=== PATIENT | female | born 1985 | race Caucasian/White ===

== ENCOUNTER 2016-03-01 09:32 | Day surgery (SDC) | payer OTHER ==
[~2016-03-01] VITALS: Ht 160 cm; Wt 61.4 kg
[~2016-03-01 09:32] MED LIST: BUPIVACAINE/EPINEPHRINE 0.5%-1:200,000 (MARCAINE) 30 ML VIAL INJ ONE; CEPH-506 PO; CTLP20T PO; ETHI1TAB26 PO; LACTATED RINGERS 1,000 ML IV SCH; OXYC1TAB87 PO; SODIUM CHLORIDE FLUSH 3 ML SYR IV PRN
--- OUTSIDE RECORDS SUMMARY | 2016-03-01 09:35 | XMS REPORT | Continuity of Care Document ---
Author Author [facility] Organization [facility] Address Unknown Phone Unavailable Support Name Relationship Address Phone DOMENICA RIVAS Next Of Kin [address] [place] [address] Unavailable Insurance Providers Payer Name Policy Number Subscriber Name Relationship [facility] [id number] Cecilia Rivas 20 Self Problems No Known Problems or Medical conditions. Family History History Response Recorded Date/Time Hx Diabetes N 09/30/12 7:27pm Hx MRSA N 09/30/12 7:27pm Social History History Response Recorded Date/Time Smoking Status Never smoker 09/30/12 7:27pm Hx Substance Use N 09/30/12 7:27pm Allergies, Adverse Reactions, Alerts Allergen Type Severity Reaction Last Updated Penicillins Allergy Mild 09/03/12 codeine Allergy Intermediate DYSPNEA 09/03/12 Medications Medication Dose Units Route Sig Qty Days Vits W-Ca,Fe,Fa(<1MG) ( Vitamins) 1 Tab PO DAILY Immunizations Name Given Type Hx Influenza Vaccination Y January 2012 H Response Recorded Date/Time Status not known Unknown Results Test Date Result Interp. Ref. Range Hematocrit October 02, 2012 4:40am 28.6 % DL 36-46 Hemoglobin October 02, 2012 4:40am 9.3 GM/DL DL 12-16 Mean Corpuscular Hemoglobin October 02, 2012 4:40am 29.2 UUG N 26-34 Mean Corpuscular Hemoglobin Concent October 02, 2012 4:40am 32.5 GM/DL N 31 -37 Mean Corpuscular Volume October 02, 2012 4:40am 89.9 UM3 N 80-100 Mean Platelet Volume October 02, 2012 4:40am 9.4 UM3 N 9.4-12.4 Platelet Count October 02, 2012 4:40am 275 T/MM3 N 130-400 RDW Standard Deviation October 02, 2012 4:40am 41.1 FL N 36.9-50.2 Red Blood Count October 02, 2012 4:40am 3.18 M/MM3 L 4.00-5.20 White Blood Count October 02, 2012 4:40am 14.7 T/MM3 H 4.5-11.0 Procedures Procedure Code Date LOW CERVICAL 74.1 10/01/12 MEDICAL INDUCTION LABOR 73.4 10/01/12 Encounters Encounter Location Date/Time Discharged Inpatient [facility] 09/30/12 6:03pm
[2016-03-01 09:39] VITALS: BP 102/68
[2016-03-01] MEDS ORDERED: MIDAZOLAM 2 MG/2 ML (VERSED) VIAL ONE (10:18)
[2016-03-01] MEDS ORDERED: ALFENTANIL 500 MCG/ML (ALFENTA) 5 ML AMP IV ONE (10:19)
[2016-03-01] MEDS ORDERED: PROPOFOL 0 ML IV ONE (10:20)
[2016-03-01] MEDS ORDERED: PROPOFOL 20 ML IV ONE (10:20)
[2016-03-01] MEDS ORDERED: ROCURONIUM 50 MG/5 ML (ZEMURON) VIAL IV ONE (11:09)
[2016-03-01] MEDS ORDERED: METOCLOPRAMIDE 10 MG/2 ML (REGLAN) VIAL ONE (11:19)
[2016-03-01] MEDS ORDERED: diphenhydrAMINE 50 MG/ML INJ (BENADRYL) ONE (11:19)
[2016-03-01] MEDS ORDERED: ONDANSETRON 2 MG/ML (Z0FRAN) 2 ML VIAL ONE (11:19)
[2016-03-01] MEDS ORDERED: GLYCOPYRROLATE 0.2 MG/ML (ROBINUL) 1 ML VIAL ONE ×2 (11:57→11:58)
[2016-03-01] MEDS ORDERED: NEOSTIGMINE 1 MG/ML SYRINGE ONE (11:58)
[2016-03-01] MEDS ORDERED: KETOROLAC 60 MG/2 ML (TORADOL) VIAL IM ONE (12:15)
[2016-03-01 13:04] VITALS: BP 120/61
[2016-03-01 13:19] VITALS: BP 107/66
[2016-03-01] MEDS ORDERED: ONDANSETRON 2 MG/ML (Z0FRAN) 2 ML VIAL IV PRN (13:25)
[2016-03-01] MEDS ORDERED: morphine INJ 4 MG/ML 1 ML SYRINGE IV PRN (13:25)
[2016-03-01] MEDS ORDERED: METOCLOPRAMIDE 10 MG/2 ML (REGLAN) VIAL IV PRN (13:25)
[2016-03-01] MEDS ORDERED: KETOROLAC 30 MG/ML (TORADOL) 1 ML VIAL IV PRN (13:25)
[2016-03-01 13:41] VITALS: BP 100/54
--- NOTE | 2016-03-01 13:45 | OPERATIVE REPORT ---
DATE OF OPERATION: 03/01/2016 PRE-OPERATIVE DIAGNOSIS: Symptomatic cholelithiasis POST-OPERATIVE DIAGNOSIS: Symptomatic cholelithiasis OPERATIVE PROCEDURE: Laparoscopic cholecystectomy with intraoperative cholangiogram. SURGEON: Emory Patricio MD YARD STOCKER: Delfina Knapp RN FA and Mindy Rodriguez MS3 ANESTHESIA: General endotracheal anesthetic INDICATIONS: The patient is a 30-year-old referred by Dr. Peace this summer with abdominal pain in the right upper quadrant associated with gallstones seen on ultrasound. She presents today for elective cholecystectomy after experiencing several more episodes of this pain in recent weeks. DESCRIPTION OF PROCEDURE: The patient was informed of the risks and benefits and agreed to proceed. She was taken to the operating room and placed supine on a standard operating table. She was administered general endotracheal anesthetic. When properly anesthetized her abdomen was prepped and draped in standard sterile fashion. The open technique was used to access the peritoneal cavity through a curvilinear incision just above the umbilicus and #0 Vicryl stay sutures were placed in the fascia. A 10-mm port was inserted and CO2 was insufflated to 15 mmHg. An Olympus 3D laparoscope was used. Under direct vision a subxiphoid 5-mm port and two subcostal right-sided 5-mm ports were placed. The patient was placed in reverse Trendelenburg position and turned slightly to the left. The gallbladder was not particularly distended or thick. Its fundus was retracted superiorly and the infundibulum retracted laterally and medially as needed. Cautery was used to score the peritoneum under the infundibulum and the cystic duct was visualized. The triangle of Calot was then dissected free and the cystic artery was seen entering the gallbladder within the triangle with no other tubular structures seen entering the gallbladder through that area. The cystic duct was clipped proximally and a cholangiogram was obtained, which showed normal intrahepatic and extrahepatic ducts with no filling defects or extravasation. The catheter was removed from the cystic duct and the cystic duct was clipped twice distally and divided between the proximal clips. The cystic artery was clipped twice proximally and once distally and divided between the distal clips. The gallbladder was then easily removed from its attachments to the liver with cautery and gentle traction and brought out under direct vision through the umbilical port site. Inspection of the gallbladder fossa revealed no significant bleeding, but I did cauterize the top of the gallbladder fossa because there was some slightly raw liver tissue there. There was no spillage of blood or bile during the case. The upper trocars were then removed under direct vision and no bleeding was seen from the abdominal wall. CO2 was let out of the abdomen and the umbilical port was removed. The Vicryl stay sutures were tied to secure the fascia at the umbilical incision and the skin was then closed at all 4 incisions with subcuticular 4-0 Monocryl. Dressings were applied. The patient tolerated the procedure without complications.
[2016-03-01 13:55] VITALS: BP 98/49
--- NOTE | 2016-03-01 13:55 | Diagnostic Imaging Report ---
INDICATION: Cholecystectomy. FINDINGS: Operative cholangiogram performed in a routine fashion with contrast injection via the cystic duct stump in surgery. The biliary tree appears nondilated. There are no filling defects in the common duct. Contrast does pass to the duodenum. IMPRESSION: Unremarkable operative cholangiogram. Dictated by: Dictated on workstation # [id number]
[2016-03-01 14:13] VITALS: BP 95/55
== END 2016-03-01 14:27 | disposition home or self-care (01) ==
LOC: ASC 09:32
PROVIDERS: ATTEND Surgery
DX: K80.10 Calculus of gallbladder with chronic cholecystitis without obstruction (principal)
CPT/HCPCS: 36415; 47563; 74300; 84703; J1200; J1885; J2250; J2710; J3490; J7120; Q9967

== ENCOUNTER → 2016-03-08 | Outpatient (REF) | payer OTHER ==
[~2016-03-08] MED LIST changes: -BUPIVACAINE/EPINEPHRINE 0.5%-1:200,000 (MARCAINE) 30 ML VIAL INJ ONE; -LACTATED RINGERS 1,000 ML IV SCH; -SODIUM CHLORIDE FLUSH 3 ML SYR IV PRN
[2016-03-08 09:04] LABS: BASOPHILS % (AUTO) 0 % (0-2); EOSINOPHILS # (AUTO) 0.4 10^3uL; EOSINOPHILS % (AUTO) 5 % (0-4); LYMPHOCYTES # (AUTO) 1.5 X10^3; MEAN CORPUSCULAR HGB CONC 33.1 g/dL (31.0-37.0); MEAN CORPUSCULAR VOLUME 81 FL (80-100); MONOCYTES # (AUTO) 0.7 X10^3; MONOCYTES % (AUTO) 8 % (3-11); NEUTROPHILS # (AUTO) 5.7 X10^3; NEUTROPHILS % (AUTO) 69 % (51-67); PLATELET COUNT 380 10^3uL (150-450); WHITE BLOOD COUNT 8.31 10^3uL (4.0-11.0)
[2016-03-08 09:07] LABS: GLUCOSE, URINE (UA) Negative (Negative); LEUKOCYTE ESTERASE ,URINE Negative (Negative); MEAN CORPUSCULAR HEMOGLOBIN 26.9 PG (26.0-34.0); PH,URINE 5.5 (5.0 - 8.0); UROBILINOGEN,URINE 0.2 mg/dL (0.2-1.0)
[2016-03-08 09:09] LABS: BILIRUBIN,URINE 1+ (Negative); CLARITY,URINE Slightly Cloudy; COLOR,URINE Dark Yellow
[2016-03-08 09:15] LABS: RBC,URINE 0-2 /HPF; URINE CENTRIFUGED VOLUME 12 mL
[2016-03-08 09:47] LABS: ALBUMIN 3.9 g/dL (3.4-5.0); CALCULATED IONIZED CALCIUM 3.9 mg/dL (3.8-4.6); TOTAL PROTEIN 7.3 g/dL (6.4-8.5)
[2016-03-08 09:58] LABS: ERYTHROCYTE SEDIMENTATION RT* 19 mm/hr (0-21)
== END ==
LOC: LAB 08:28
PROVIDERS: ATTEND Family Medicine
DX: R68.83 Chills (without fever) (principal); R53.1 Weakness; Z90.49 Acquired absence of other specified parts of digestive tract; M25.571 Pain in right ankle and joints of right foot; M25.531 Pain in right wrist
CPT/HCPCS: 80053; 81003; 81015; 84443; 85025; 85652; 86140